=== PATIENT | male | born 1980 | race Caucasian/White ===

== ENCOUNTER 2016-10-18 20:00 | Emergency (ER) | payer OTHER ==
--- NOTE | 2016-10-18 22:38 | ED CLINICAL REPORT ---
Clinical Report - Physicians/Mid Levels [facility] [address] [place] [address] 10/18/2016 20:03 Patient: JED SOOD Time Seen: 21:12; initial patient contact, initial documentation, patient care assumed. Arrived- By private vehicle. Historian- patient. HISTORY OF PRESENT ILLNESS Chief Complaint: ABNORMAL GLUCOSE. This started yesterday and is still present. No loss of appetite or weight loss. Denies sleep problem. No decreased urine output. (having issues with increased thirst lately, just found out yesterday he was diabetic, given rx, no info really given on dm or diet or anything, has appt Tues with pcp over sugar, has appt Wed with surgeon over umbilical hernia, and has pending appt with senior escrow officer, sugar went down from dr office from 530 to 300 something, then, with dinner sugar was 600, pt had x2 burritos and beans for dinner). Similar symptoms previously: None. Recent medical care: The patient was seen recently in the office. ( went to pcp yesterday for stomach issues, dx with gastroenteritis and umbilical hernia, given cipro, blood work done and called back to office for sugar of 530 and dx of new dm). REVIEW OF SYSTEMS No fever, difficulty breathing, chest pain, abdominal pain or vomiting. No diarrhea or difficulty with urination. All systems otherwise negative, except as recorded above. PAST HISTORY See nurses notes. PROBLEMS: Hernia. Gastroesophageal Reflux Disease. Diabetes Mellitus. --20:17 Hussein Gillespie, Cam. SOCIAL HISTORY Heavy tobacco smoker. Alcohol use. Patient is a longstanding alcoholic. (sober 7 mos). No drug use. No recent travel. Is a local resident. He lives with spouse. FAMILY HISTORY Negative. ADDITIONAL NOTES The nursing notes have been reviewed with agreement regarding the chief complaint, HPI, ROS, PMH and patient medications and allergies. PHYSICAL EXAM Vital Signs: 10/18/2016 20:10 BP: 131/92. HR: 108. RR: 18. O2 saturation: 95%. Temp: 98.5 F. Pain level now: 7/10. Have been reviewed as abnormal and appear to be correct. Blood pressure normal. Tachycardic. Respiratory rate normal. Temperature normal. Oxygen saturation normal. Appearance: Alert. No acute distress. Eyes: Pupils equal, round and reactive to light. Eyes normal inspection. Neck: Normal inspection. Neck supple. CVS: Normal heart rate and rhythm. Heart sounds normal. Pulses normal. Respiratory: No respiratory distress. Breath sounds normal. Chest nontender. Abdomen: No visible injury. Soft and nontender. No mass. Small, tender mass present in the periumbilical area. No pulsatile mass present. No guarding present. Severely obese. Back: Normal inspection. Skin: Skin warm and dry. Normal skin color. No rash. Normal skin turgor. Extremities: Extremities exhibit normal ROM. No lower extremity edema. Neuro: Oriented X 3. No motor deficit. No sensory deficit. PROGRESS AND PROCEDURES Course of Care: 10/18/2016 21:37 BP: 143/92. HR: 104. RR: 20. O2 saturation: 99%. Pain level now: 0/10. Vital Signs: have been reviewed as normal and appear to be correct. Patient and spouse counseled in person regarding the patient's stable condition, test results and diagnosis. 22:25. Differential Diagnosis: Other possible considerations: dka, uncontrolled dm, viral illness, flu. Above considerations are based on history, physical exam and laboratory data. Differential diagnosis was discussed with patient and patient's family. Disposition: Discharged home in good and improved condition (22:38). Condition: good and stable. CLINICAL IMPRESSION New onset, poorly controlled type 2 diabetes with hyperglycemia. No diabetic ketoacidosis or retinopathy, hyperosmolar nonketotic state, coma or neuropathy. No dermopathy. INSTRUCTIONS Follow a diabetic diet. Warnings: GENERAL WARNINGS: Return or contact your physician immediately if your condition worsens or changes unexpectedly, if not improving as expected, or if other problems arise. Specifically return if problem worsens. Follow-up: Follow up with your doctor Thursday as scheduled even if well. Summary of care provided to patient and family. Understanding of the discharge instructions verbalized by patient and family. (Electronically signed by Griselda Oliveira A.R.N.P. 10/18/2016 23:30)
--- NOTE | 2016-10-18 22:38 | ED CLINICAL REPORT ---
Clinical Report - Physicians/Mid Levels [facility] [address] [place] [address] 10/18/2016 20:03 Patient: JED SOOD Time Seen: 21:12; initial patient contact, initial documentation, patient care assumed. Arrived- By private vehicle. Historian- patient. HISTORY OF PRESENT ILLNESS Chief Complaint: ABNORMAL GLUCOSE. This started yesterday and is still present. No loss of appetite or weight loss. Denies sleep problem. No decreased urine output. (having issues with increased thirst lately, just found out yesterday he was diabetic, given rx, no info really given on dm or diet or anything, has appt Tues with pcp over sugar, has appt Wed with surgeon over umbilical hernia, and has pending appt with sales representative graphic art, sugar went down from dr office from 530 to 300 something, then, with dinner sugar was 600, pt had x2 burritos and beans for dinner). Similar symptoms previously: None. Recent medical care: The patient was seen recently in the office. ( went to pcp yesterday for stomach issues, dx with gastroenteritis and umbilical hernia, given cipro, blood work done and called back to office for sugar of 530 and dx of new dm). REVIEW OF SYSTEMS No fever, difficulty breathing, chest pain, abdominal pain or vomiting. No diarrhea or difficulty with urination. All systems otherwise negative, except as recorded above. PAST HISTORY See nurses notes. PROBLEMS: Hernia. Gastroesophageal Reflux Disease. Diabetes Mellitus. --20:17 Hussein Gillespie, Cam. SOCIAL HISTORY Heavy tobacco smoker. Alcohol use. Patient is a longstanding alcoholic. (sober 7 mos). No drug use. No recent travel. Is a local resident. He lives with spouse. FAMILY HISTORY Negative. ADDITIONAL NOTES The nursing notes have been reviewed with agreement regarding the chief complaint, HPI, ROS, PMH and patient medications and allergies. PHYSICAL EXAM Vital Signs: 10/18/2016 20:10 BP: 131/92. HR: 108. RR: 18. O2 saturation: 95%. Temp: 98.5 F. Pain level now: 7/10. Have been reviewed as abnormal and appear to be correct. Blood pressure normal. Tachycardic. Respiratory rate normal. Temperature normal. Oxygen saturation normal. Appearance: Alert. No acute distress. Eyes: Pupils equal, round and reactive to light. Eyes normal inspection. Neck: Normal inspection. Neck supple. CVS: Normal heart rate and rhythm. Heart sounds normal. Pulses normal. Respiratory: No respiratory distress. Breath sounds normal. Chest nontender. Abdomen: No visible injury. Soft and nontender. No mass. Small, tender mass present in the periumbilical area. No pulsatile mass present. No guarding present. Severely obese. Back: Normal inspection. Skin: Skin warm and dry. Normal skin color. No rash. Normal skin turgor. Extremities: Extremities exhibit normal ROM. No lower extremity edema. Neuro: Oriented X 3. No motor deficit. No sensory deficit. PROGRESS AND PROCEDURES Course of Care: 10/18/2016 21:37 BP: 143/92. HR: 104. RR: 20. O2 saturation: 99%. Pain level now: 0/10. Vital Signs: have been reviewed as normal and appear to be correct. Patient and spouse counseled in person regarding the patient's stable condition, test results and diagnosis. 22:25. Differential Diagnosis: Other possible considerations: dka, uncontrolled dm, viral illness, flu. Above considerations are based on history, physical exam and laboratory data. Differential diagnosis was discussed with patient and patient's family. Disposition: Discharged home in good and improved condition (22:38). Condition: good and stable. CLINICAL IMPRESSION New onset, poorly controlled type 2 diabetes with hyperglycemia. No diabetic ketoacidosis or retinopathy, hyperosmolar nonketotic state, coma or neuropathy. No dermopathy. INSTRUCTIONS Follow a diabetic diet. Warnings: GENERAL WARNINGS: Return or contact your physician immediately if your condition worsens or changes unexpectedly, if not improving as expected, or if other problems arise. Specifically return if problem worsens. Follow-up: Follow up with your doctor Thursday as scheduled even if well. Summary of care provided to patient and family. Understanding of the discharge instructions verbalized by patient and family. (Electronically signed by Griselda Oliveira A.R.N.P. 10/18/2016 23:30)
--- NOTE | 2016-10-18 22:38 | ED ORDER SUMMARY ---
..... Patient: JED SOOD OrderSheet [facility] VisitID: [id number] [place] [address] 36y, M Registration Date/Time: 10/18/2016 ORDER SHEET Weight: 139.7 kg (stated) Allergies: Codeine GENERAL ORDERS: CBC w Diff Urgent (20:10/18/2016 HSoule per protocol) (Ack 20:25 LTapper) (22:35 JDeElena R.N.) CMP Urgent (20:10/18/2016 HSoule per protocol) (Ack 20:25 LTapper) (22:35 JDeElena R.N.) UA-Culture if indicated Urgent (20:10/18/2016 HSoule per protocol) (Ack 20:25 LTapper) POC Glucose (20:10/18/2016 HSoule per protocol) (20:21 HSoule) MEDICATION ORDERS: IV FLUIDS: IV Saline Lock (20:10/18/2016 HSoule per protocol) (20:21 HSoule) IV NS : initial bolus 1000 mL (1000 mL/hr), then 1000 mL/hr for X1 (NOW) (20:23 10/18/2016 HSoule per protocol) (Ack 20:23 HSoule) (20:27 HSoule) Insulin Reg IV 8 units (HIGH ALERT MEDICATION, NOW) (21:26 10/18/2016 HBivens A.R.N.P.) (Ack 21:29 HSoule) (21:37 HSoule) ORDER SHEET NOTES: [Electronically signed by Griselda Oliveira A.R.N.P. (23:30 10/18/2016)] [Electronically signed by Sobeida Carl (00:10/19/2016)] [Electronically locked/signed by Sobeida Carl (00:10/19/2016)]
--- NOTE | 2016-10-18 22:38 | ED NURSING NOTES ---
Clinical Report - Nurses [facility] [address] [place] [address] 10/18/2016 20:03 Patient: JED SOOD TRIAGE Triage time 20:12. Chief Complaint: HEADACHE, NAUSEA and VOMITING (Diagnosed with Diabetes yesterday; started on Glimeperide. Instructed to take BSG AM, PM, and before meals. BSG tonight before dinner 600 mg/dl checked with his home glucometer. C/O of headache, dry mouth, nausea. Spouse states he has a "gastro infection" and is supposed to get antibiotics on Thursday. Surgery appointment on Thursday for hernia repair.). Alert. No acute distress. SEPSIS SCREEN: Sepsis Screen: negative. Negative (no infection suspected/documented). --20:19 Hussein Gillespie R.N. 20:10 10/18/16. BP: 131/92 (large adult cuff) taken on the right arm, via an automated monitor, while lying. HR: 108 (tachycardic). RR: 18 (regular, unlabored and normal). O2 saturation: 95% on room air. Temp: 98.5 F (oral). Pain level now: 04/13. --20:19 Hussein Gillespie R.N. Weight: 139.7 kg stated. Height/Length: 67 inches Per Patient. BMI: 48.3. --20:19 Hussein Gillespie R.N. Medications Glimepiride Oral (Tablet 2 mg) 1 tablet (Initially directed to take 1 pill with breakfast then tomorrow begin 1 pill with breakfast and dinner and then the next day with all meals.). --20:15 Hussein Gillespie R.N. Prochlorperazine Maleate Oral (Tablet 10 mg) 1 tablet, 3x a day as needed. --20:16 Hussein Gillespie R.N. Ranitidine HCl Oral (Tablet 150 mg) 1 tablet, 2x a day. --20:16 Hussein Gillespie R.N. Medication/allergy information source: the patient's pill bottles. --20:19 Hussein Gillespie R.N. Allergies Codeine. --20:16 Hussein Gillespie R.N. History Arrived by private vehicle. Historian: patient. Accompanied by family. Primary physician ([facility]). This started today. He has had intermittent abdominal pain (Hernia; surgery for repair scheduled.). The pain is described as located in the upper abdomen. No fever, chest pain or difficulty breathing. Denies muscle aches. Treatment CAP SEWER: None. PAST MEDICAL HX: Immunizations: up-to-date. SOCIAL HX: Current every day heavy tobacco smoker (cigarette)- less than 1 pack per day. Alcohol use. Patient is a recovering alcoholic. (Last drink 7 months ago.). No drug use. He has not traveled outside the [place] The patient was not exposed to MRSA. ABUSE ASSESSMENT: Abuse assessment: The patient was asked "Do you feel safe in your home?" and "Has anyone hurt you or threatened to hurt you?". No report of abuse. SELF HARM ASSESSMENT: A self harm assessment was performed. The patient answered "no" to the question "Do you have thoughts of harming or killing yourself?" and "Have you recently had thoughts about harming or killing others?". FALL RISK ASSESSMENT: Fall risk assessment completed. No fall risk identified. NUTRITIONAL RISK ASSESSMENT: The nutritional risk assessment revealed no deficiencies. FUNCTIONAL ASSESSMENT: Functional assessment: no impairments noted. LEARNING NEEDS ASSESSMENT: The learning needs assessment revealed no barriers. SKIN INTEGRITY ASSESSMENT: Skin integrity risk assessment completed. No skin integrity risk identified. --20:19 Hussein Gillespie R.N. PROBLEMS: Hernia. Gastroesophageal Reflux Disease. Diabetes Mellitus. --20:17 Hussein Gillespie R.N. Assessment GENERAL / NEURO / PSYCH: Alert. Oriented X 4. Appears in no acute distress. Marlin Coma Scale: 15- eyes open spontaneously (4); best verbal response- oriented x 4 (5); best motor response- obeys commands (6). Patient appears calm and cooperative. RESPIRATORY: Respirations not labored. SKIN: Skin is warm and dry. --20:19 Hussein Gillespie R.N. Interventions ID and allergy band on patient. Finger stick glucose: 361 mg/dl; ordered; performed by nurse; result shown to the ED physician. To treatment room. --20:19 Hussein Gillespie R.N. NURSING PROGRESS NOTES 20:10/18/2016 Site #1 started via IV in the left antecubital space with an 20g angiocath, with aseptic technique and good blood return; one attempt. Blood drawn: rainbow set. Labeled in the presence of the patient and sent to the lab. Saline lock flushed with 10 mL saline. --20:21 Sobeida Carl The initial plan of care for this patient has been created This plan of care was discussed with the patient. Patient gowned. Reassurance given to the patient. Two patient identifiers checked. Call light placed in reach. Side rails up x 1. Bed placed in lowest position. Brakes of bed on. Patient ready for evaluation- ED physician and CRANK HAND notified. --20:21 Hussein Gillespie R.N. Finger stick glucose: 361 mg/dL; performed by nurse; result shown to the ED physician. --20:22 Sobeida Carl 20:27 10/18/2016 Started bag #1 1000 mL IV Fluids IV NS (Saline); at 1000 mL/hr over 1 hour(s) via site #1. Allergies verified and confirmed 5 rights. IV patency established. IV site checked: no pain, redness, or swelling. IV flushed thoroughly pre- and post-medication administration. --20:27 Sobeida Carl Patient ID band checked for patient name and birthdate: patient confirmed. Instructions provided to collect clean catch urine and patient verbalized understanding. Clean catch urine collected with return of yellow-colored clear urine; sample sent to lab for urinalysis. Specimen labeled in the presence of the patient. --20:58 Sobeida Carl 21:37 10/18/2016 Insulin REG IVP 8 unit given over 1 minute(s) via site #1. Allergies verified and confirmed 5 rights. IV patency established. IV site checked: no pain, redness, or swelling. IV flushed thoroughly pre- and post-medication administration. IVP given by RN (Dose verified by Rakan Quach RN). --21:37 Sobeida Carl 21:37 10/18/16. BP: 143/92. HR: 104. RR: 20. O2 saturation: 99% on room air. Pain level now: 0/10. --21:38 Sobeida Carl ( Patient has no complaints at this time). --21:38 Sobeida Carl 21:39 10/18/2016 IV Fluids IV NS Discontinued: bag #1 completed. Total amount infused: 1000 mL. IV patency established. IV site checked: no pain, redness, or swelling. IV flushed thoroughly. --21:39 Sobeida Carl Finger stick glucose: 235 mg/dL; performed by nurse; result shown to the CRANK HAND. --22:11 Sobeida Carl. DISPOSITION / DISCHARGE 22:48 10/18/16. BP: 138/64. HR: 105. RR: 20. O2 saturation: 98% on room air. Temp: 98 F (oral). Pain level now: 0/10. --22:51 Sobeida Carl 22:46 10/18/2016 Site #1 removed upon discharge. Catheter intact. Bandaid applied. --22:51 Sobeida Carl 22:51 10/18/16. Condition at departure: improved and stable. No learning barriers present. Discharge instructions provided and reviewed with the patient, spouse and family. Reviewed diabetic diet and need for increased fluid intake. Patient and spouse verbalized understanding. Written instructions provided in Wolof. ( Follow up with PCP as scheduled on Thursday. Return if symptoms worsen. Reviewed when and how to check sugars. Reviewed Glycemic Index and appropriate food choices. Patient and family felt better after receiving teaching today from provider and RN). The patient was discharged by the nurse practitioner. He was discharged home and accompanied by spouse. He left the Emergency Department ambulatory and via private vehicle. Spouse driving. --22:51 Sobeida Carl. Locked/Released at 10/19/2016 0:21 by Sobeida Carl,
--- NOTE | 2016-10-18 22:38 | ED ORDER SUMMARY ---
..... Patient: JED OSOD OrderSheet [facility] VisitID: [id number] [place] [address] 36y, M Registration Date/Time: 10/18/2016 ORDER SHEET Weight: 139.7 kg (stated) Allergies: Codeine GENERAL ORDERS: CBC w Diff Urgent (20:10/18/2016 HSoule per protocol) (Ack 20:25 LTapper) (22:35 JDeElena R.N.) CMP Urgent (20:10/18/2016 HSoule per protocol) (Ack 20:25 LTapper) (22:35 JDeElena R.N.) UA-Culture if indicated Urgent (20:10/18/2016 HSoule per protocol) (Ack 20:25 LTapper) POC Glucose (20:10/18/2016 HSoule per protocol) (20:21 HSoule) MEDICATION ORDERS: IV FLUIDS: IV Saline Lock (20:10/18/2016 HSoule per protocol) (20:21 HSoule) IV NS : initial bolus 1000 mL (1000 mL/hr), then 1000 mL/hr for X1 (NOW) (20:23 10/18/2016 HSoule per protocol) (Ack 20:23 HSoule) (20:27 HSoule) Insulin Reg IV 8 units (HIGH ALERT MEDICATION, NOW) (21:26 10/18/2016 HBivens A.R.N.P.) (Ack 21:29 HSoule) (21:37 HSoule) ORDER SHEET NOTES: [Electronically signed by Griselda Oliveira A.R.N.P. (23:30 10/18/2016)] [Electronically signed by Sobeida Carl (00:10/19/2016)] [Electronically locked/signed by Sobeida Carl (00:10/19/2016)]
--- NOTE | 2016-10-18 22:38 | ED NURSING NOTES ---
Clinical Report - Nurses [facility] [address] [place] [address] 10/18/2016 20:03 Patient: JED SOOD TRIAGE Triage time 20:12. Chief Complaint: HEADACHE, NAUSEA and VOMITING (Diagnosed with Diabetes yesterday; started on Glimeperide. Instructed to take BSG AM, PM, and before meals. BSG tonight before dinner 600 mg/dl checked with his home glucometer. C/O of headache, dry mouth, nausea. Spouse states he has a "gastro infection" and is supposed to get antibiotics on Thursday. Surgery appointment on Thursday for hernia repair.). Alert. No acute distress. SEPSIS SCREEN: Sepsis Screen: negative. Negative (no infection suspected/documented). --20:19 Hussein Gillespie R.N. 20:10 10/18/16. BP: 131/92 (large adult cuff) taken on the right arm, via an automated monitor, while lying. HR: 108 (tachycardic). RR: 18 (regular, unlabored and normal). O2 saturation: 95% on room air. Temp: 98.5 F (oral). Pain level now: 04/13. --20:19 Hussein Gillespie R.N. Weight: 139.7 kg stated. Height/Length: 67 inches Per Patient. BMI: 48.3. --20:19 Hussein Gillespie R.N. Medications Glimepiride Oral (Tablet 2 mg) 1 tablet (Initially directed to take 1 pill with breakfast then tomorrow begin 1 pill with breakfast and dinner and then the next day with all meals.). --20:15 Hussein Gillespie R.N. Prochlorperazine Maleate Oral (Tablet 10 mg) 1 tablet, 3x a day as needed. --20:16 Hussein Gillespie R.N. Ranitidine HCl Oral (Tablet 150 mg) 1 tablet, 2x a day. --20:16 Hussein Gillespie R.N. Medication/allergy information source: the patient's pill bottles. --20:19 Hussein Gillespie R.N. Allergies Codeine. --20:16 Hussein Gillespie R.N. History Arrived by private vehicle. Historian: patient. Accompanied by family. Primary physician ([facility]). This started today. He has had intermittent abdominal pain (Hernia; surgery for repair scheduled.). The pain is described as located in the upper abdomen. No fever, chest pain or difficulty breathing. Denies muscle aches. Treatment METAL PRECISION MACHINE ASSEMBLER: None. PAST MEDICAL HX: Immunizations: up-to-date. SOCIAL HX: Current every day heavy tobacco smoker (cigarette)- less than 1 pack per day. Alcohol use. Patient is a recovering alcoholic. (Last drink 7 months ago.). No drug use. He has not traveled outside the [place] The patient was not exposed to MRSA. ABUSE ASSESSMENT: Abuse assessment: The patient was asked "Do you feel safe in your home?" and "Has anyone hurt you or threatened to hurt you?". No report of abuse. SELF HARM ASSESSMENT: A self harm assessment was performed. The patient answered "no" to the question "Do you have thoughts of harming or killing yourself?" and "Have you recently had thoughts about harming or killing others?". FALL RISK ASSESSMENT: Fall risk assessment completed. No fall risk identified. NUTRITIONAL RISK ASSESSMENT: The nutritional risk assessment revealed no deficiencies. FUNCTIONAL ASSESSMENT: Functional assessment: no impairments noted. LEARNING NEEDS ASSESSMENT: The learning needs assessment revealed no barriers. SKIN INTEGRITY ASSESSMENT: Skin integrity risk assessment completed. No skin integrity risk identified. --20:19 Hussein Gillespie R.N. PROBLEMS: Hernia. Gastroesophageal Reflux Disease. Diabetes Mellitus. --20:17 Hussein Gillespie R.N. Assessment GENERAL / NEURO / PSYCH: Alert. Oriented X 4. Appears in no acute distress. Marlin Coma Scale: 15- eyes open spontaneously (4); best verbal response- oriented x 4 (5); best motor response- obeys commands (6). Patient appears calm and cooperative. RESPIRATORY: Respirations not labored. SKIN: Skin is warm and dry. --20:19 Hussein Gillespie R.N. Interventions ID and allergy band on patient. Finger stick glucose: 361 mg/dl; ordered; performed by nurse; result shown to the ED physician. To treatment room. --20:19 Hussein Gillespie R.N. NURSING PROGRESS NOTES 20:10/18/2016 Site #1 started via IV in the left antecubital space with an 20g angiocath, with aseptic technique and good blood return; one attempt. Blood drawn: rainbow set. Labeled in the presence of the patient and sent to the lab. Saline lock flushed with 10 mL saline. --20:21 Sobeida Carl The initial plan of care for this patient has been created This plan of care was discussed with the patient. Patient gowned. Reassurance given to the patient. Two patient identifiers checked. Call light placed in reach. Side rails up x 1. Bed placed in lowest position. Brakes of bed on. Patient ready for evaluation- ED physician and HOUSEHOLD APPLIANCES SALESPERSON notified. --20:21 Hussein Gillespie R.N. Finger stick glucose: 361 mg/dL; performed by nurse; result shown to the ED physician. --20:22 Sobeida Carl 20:27 10/18/2016 Started bag #1 1000 mL IV Fluids IV NS (Saline); at 1000 mL/hr over 1 hour(s) via site #1. Allergies verified and confirmed 5 rights. IV patency established. IV site checked: no pain, redness, or swelling. IV flushed thoroughly pre- and post-medication administration. --20:27 Sobeida Carl Patient ID band checked for patient name and birthdate: patient confirmed. Instructions provided to collect clean catch urine and patient verbalized understanding. Clean catch urine collected with return of yellow-colored clear urine; sample sent to lab for urinalysis. Specimen labeled in the presence of the patient. --20:58 Sobeida Carl 21:37 10/18/2016 Insulin REG IVP 8 unit given over 1 minute(s) via site #1. Allergies verified and confirmed 5 rights. IV patency established. IV site checked: no pain, redness, or swelling. IV flushed thoroughly pre- and post-medication administration. IVP given by RN (Dose verified by Rakan Quach RN). --21:37 Sobeida Carl 21:37 10/18/16. BP: 143/92. HR: 104. RR: 20. O2 saturation: 99% on room air. Pain level now: 0/10. --21:38 Sobeida Carl ( Patient has no complaints at this time). --21:38 Sobeida Carl 21:39 10/18/2016 IV Fluids IV NS Discontinued: bag #1 completed. Total amount infused: 1000 mL. IV patency established. IV site checked: no pain, redness, or swelling. IV flushed thoroughly. --21:39 Sobeida Carl Finger stick glucose: 235 mg/dL; performed by nurse; result shown to the HOUSEHOLD APPLIANCES SALESPERSON. --22:11 Sobeida Carl. DISPOSITION / DISCHARGE 22:48 10/18/16. BP: 138/64. HR: 105. RR: 20. O2 saturation: 98% on room air. Temp: 98 F (oral). Pain level now: 0/10. --22:51 Sobeida Carl 22:46 10/18/2016 Site #1 removed upon discharge. Catheter intact. Bandaid applied. --22:51 Sobeida Carl 22:51 10/18/16. Condition at departure: improved and stable. No learning barriers present. Discharge instructions provided and reviewed with the patient, spouse and family. Reviewed diabetic diet and need for increased fluid intake. Patient and spouse verbalized understanding. Written instructions provided in Kinyarwanda. ( Follow up with PCP as scheduled on Thursday. Return if symptoms worsen. Reviewed when and how to check sugars. Reviewed Glycemic Index and appropriate food choices. Patient and family felt better after receiving teaching today from provider and RN). The patient was discharged by the nurse practitioner. He was discharged home and accompanied by spouse. He left the Emergency Department ambulatory and via private vehicle. Spouse driving. --22:51 Sobeida Carl. Locked/Released at 10/19/2016 0:21 by Sobeida Carl,
--- NOTE | 2016-10-19 00:23 | ED MAR SUMMARY ---
..... Medication Administration Record [facility] [address] [place] [address] Patient: JED SOOD Visit ID: [id number] 36y, M Weight: 139.7 kg Height/Length: 67 in BMI: 48.3 ALLERGIES: Codeine Start 20:27 10/18/2016 Sobeida Carl,, Stop 21:39 10/18/2016 Sobeida Carl, Medication Administered: IV NS (SALINE), Dose: IV Fluids over 1 hour(s), Rate: 1000 mL/hr, Dispensed: 1000 mL bag, Site: #1 left AC. Medication Ordered: IV NS : initial bolus 1000 mL (1000 mL/hr), then 1000 mL/hr for X1 (NOW). Given 21:37 10/18/2016 Sobeida Carl, Medication Administered: INSULIN REG [IVP], Dose: 8 unit IVP over 1 minute(s), Site: #1 left AC. Medication Ordered: Insulin Reg IV 8 units (HIGH ALERT MEDICATION, NOW).
--- NOTE | 2016-10-19 00:23 | ED MAR SUMMARY ---
..... Medication Administration Record [facility] [address] [place] [address] Patient: JED SOOD Visit ID: [id number] 36y, M Weight: 139.7 kg Height/Length: 67 in BMI: 48.3 ALLERGIES: Codeine Start 20:27 10/18/2016 Sobeida Carl,, Stop 21:39 10/18/2016 Sobeida Carl, Medication Administered: IV NS (SALINE), Dose: IV Fluids over 1 hour(s), Rate: 1000 mL/hr, Dispensed: 1000 mL bag, Site: #1 left AC. Medication Ordered: IV NS : initial bolus 1000 mL (1000 mL/hr), then 1000 mL/hr for X1 (NOW). Given 21:37 10/18/2016 Sobeida Carl, Medication Administered: INSULIN REG [IVP], Dose: 8 unit IVP over 1 minute(s), Site: #1 left AC. Medication Ordered: Insulin Reg IV 8 units (HIGH ALERT MEDICATION, NOW).
--- NOTE | 2016-10-19 00:23 | ED MED RECONCILIATION SUMMARY ---
Patient: JED SOOD Medication Reconciliation Report [facility] VisitID: [id number] [address] [place] [address] 36y, M Registration Date/Time: 10/18/2016 Weight: 139.7 kg Height/Length: 67 in. BMI: 48.3 ALLERGIES: Codeine The patient's Home Medications are listed below: THE FOLLOWING MEDICATIONS NEED TO BE RECONCILED: Glimepiride Oral (2 mg) 1 tablet, Initially directed to take 1 pill with breakfast then tomorrow begin 1 pill with breakfast and dinner and then the next day with all meals. Prochlorperazine Maleate Oral (10 mg) 1 tablet, 3x a day Ranitidine HCl Oral (150 mg) 1 tablet, 2x a day The source(s) of the original Home Medication information: patient's pill bottles The following Medications were given to the patient in the Emergency Department: IV NS IV Fluids bolus 0, then 1000 mL/hr, administered: 10/18/2016 8:27:00 PM Insulin REG [IVP] IVP 8 unit, administered: 10/18/2016 9:37:00 PM The following Medications were prescribed to the patient: None.
--- NOTE | 2016-10-19 00:23 | ED MED RECONCILIATION SUMMARY ---
Patient: JED SOOD Medication Reconciliation Report [facility] VisitID: [id number] [address] [place] [address] 36y, M Registration Date/Time: 10/18/2016 Weight: 139.7 kg Height/Length: 67 in. BMI: 48.3 ALLERGIES: Codeine The patient's Home Medications are listed below: THE FOLLOWING MEDICATIONS NEED TO BE RECONCILED: Glimepiride Oral (2 mg) 1 tablet, Initially directed to take 1 pill with breakfast then tomorrow begin 1 pill with breakfast and dinner and then the next day with all meals. Prochlorperazine Maleate Oral (10 mg) 1 tablet, 3x a day Ranitidine HCl Oral (150 mg) 1 tablet, 2x a day The source(s) of the original Home Medication information: patient's pill bottles The following Medications were given to the patient in the Emergency Department: IV NS IV Fluids bolus 0, then 1000 mL/hr, administered: 10/18/2016 8:27:00 PM Insulin REG [IVP] IVP 8 unit, administered: 10/18/2016 9:37:00 PM The following Medications were prescribed to the patient: None.
--- NOTE | 2016-10-19 00:23 | ED DISCHARGE INSTRUCTIONS ---
Patient: JED SOOD General Instructions [facility] VisitID: [id number] [place] [address] 36y, M Registration Date/Time: 10/18/2016 New onset, poorly controlled type 2 diabetes with hyperglycemia. No diabetic ketoacidosis or retinopathy, hyperosmolar nonketotic state, coma or neuropathy. No dermopathy. INSTRUCTIONS Follow a diabetic diet. Warnings: GENERAL WARNINGS: Return or contact your physician immediately if your condition worsens or changes unexpectedly, if not improving as expected, or if other problems arise. Specifically return if problem worsens. Follow-up: Follow up with your doctor Thursday as scheduled even if well. Summary of care provided to patient and family. Understanding of the discharge instructions verbalized by patient and family. ADDITIONAL INFORMATION Diabetes with High Blood Sugar You have been treated for high blood sugar (hyperglycemia). This may be becauseof an infection or other illness;eating too many sweets or starches ; not taking enough insulin. Home care High blood sugar may cause symptoms that you can learn to recognize, such as these: If you feel like your blood sugar may be too high, measure it using a blood or urine test. If it is above your usual range, use the "sliding scale"rRegular insulin dose your doctor gave you to correct this. If no "sliding scale" orders were given, contact your doctor for further advice. If your blood sugar is over 300, and you can't reach your doctor, go to the hospital emergency room. Monitor and write down your blood sugars - and insulin dose, if you take insulin - atleast twice a day. Do this before breakfast and before dinner. Do this for the next 3 to 5 days. Follow-up care [facility] the next week to review your blood sugar records. You will find out if you need to adjust your dose of insulin or other medicine for blood sugar. When to seek medical care Get prompt medical attention if either of these occur: High blood sugar.Symptoms are frequent urination, feeling dizzy, thirst, headache, nausea or vomiting, abdominal pain, and drowsiness or loss of consciousness. Low blood sugar. Symptoms are fatigue, headache, shakes, excess sweating, hunger, anxiety, reduced vision, drowsiness, weakness, confusion or loss of consciousness, and seizure. Diabetes (General Information) Cells of the body need glucose (sugar) for fuel. Insulin is the hormone in the body that lets glucose move from the blood into the cells. Diabetes is a chronic health condition where the body is not able to produce enough insulin, or does not respond well to its own insulin. Because the glucose in the blood cannot get into the cells, it builds up in the blood causing high blood sugar (hyperglycemia). Your actual blood sugar level is a result of the balance between several factors. These include what kind of food you eat and how much of it you eat, how much exercise you get, and the amount of insulin present in your body. Eating too much of the wrong kinds of food or not taking diabetes medicine on time can cause high blood sugar. Infections can cause high blood sugar even if you are taking medicines correctly. Missing meals, not eating enough food, or taking too much diabetes medicine can lead to low blood sugar. Untreated over long periods of time, diabetes can cause serious problems such as heart disease, stroke, kidney failure, blindness, nerve pain or loss of feeling in the legs and feet, and gangrene of the feet. With good treatment keeping your blood sugar under control, you can prevent or delay the complications of diabetes. Normal blood sugar levels are 70-130 one to two hours before a meal and not more than 180 two hours after a meal. Home Care: Follow your prescribed diabetic diet and take insulin or oral diabetic medicine exactly as ordered. Monitor blood sugars as advised. Keep a log of your results. This will help your doctor adjust your medicines to keep your blood sugar under control. Try to achieve your ideal weight. Proper diet and exercise can reduce or eliminate the need to take diabetes medicine. Avoid tobacco smoking, which worsens the effect of diabetes on your circulation. The risk of a heart attack in a diabetic is 15 times more likely if you smoke. Pay attention to good foot care. If you have lost feeling in your feet you may not notice an injury or infection. Check your feet and between your toes at least once a week. Wear a medical alert bracelet or carry a card in your wallet explaining that you are diabetic. In the event that you become very ill and are unable to give this information, it will help medical personnel provide proper care. If you become sick with a cold, the flu, or an infection (viral or bacterial), please do the following: Review your diabetes sick plan and contact your physician as instructed. You may have been advised to call the doctor immediately if: Your blood sugar is above 240 while taking your diabetes medication Your urine ketone levels are above normal or showing high levels of ketones You have been vomiting more than 6 hours You experience difficulty to trouble breathing You develop a high fever or you have had a fever for a couple of days and you aren't getting better You become light-headed and more sleepy than usual Keep taking your oral diabetes medicine (pills) even if you have been vomiting and feeling sick. Contact your doctor immediately for advice because you may need insulin to lower your blood sugar until you recover from your illness. Keep taking your insulin, even if you have been vomiting and feeling sick. Call your doctor immediately and ask if a temporary adjustment of your insulin dose is needed based on your blood glucose (sugar) results. Check your blood sugar every 2 to 4 hours, or at least 4 times a day. Check your keytones often. If you are vomiting and having diarrhea, monitor them more frequently. Don't skip meals. Try to eat small meals on a regular schedule, even if you do not have an appetite. Drink water or other calorie-free, non-caffeinated liquids to stay hydrated. If you are nauseated or vomiting, drink small amounts (sips, a teaspoon) every 5 minutes. To prevent dehydration, try to drink a cup or 8 ounces of fluids every hour while you are awake. Always carry a source of fast-acting sugar with you in case you get symptoms of low blood sugar (below 70). At the first sign of low blood sugar, eat or drink 15 to 20 grams of fast-acting sugar to raise your blood sugar. Examples include: 3 to 4 glucose tablets (found at most drugstores) 4 ounces (1/2 cup) of regular (not diet) softdrinks 4 ounces (1/2 cup) of any fruit juice 8 ounces (1 cup) of milk 5 to 6 pieces of hard candy 1 tablespoon of honey Check your blood sugar 15 minutes after treating yourself. If it is still low (below 70), take another 15 to 20 grams of fast-acting sugar. Test again in 15 minutes. If it returns to normal (70 or above), eat a snack or meal to keep your blood sugar in a safe range. If it remains low, call your doctor or go to an emergency room. Follow Up with your doctor as advised by our staff. For more information, contact the [employer]. www.diabetes.org or 617-192-3199. Get Prompt Medical Attention if any of the following occur: HIGH BLOOD SUGAR: frequent urination, dizziness, drowsiness, thirst, headache, nausea or vomiting, abdominal pain, vision changes, fast breathing, confusion or loss of consciousness LOW BLOOD SUGAR: fatigue, headache, shakes, excess sweating, hunger, feeling anxious or restless, vision changes, drowsiness, weakness, confusion or loss of consciousness Chest pain or shortness of breath Dizziness or fainting Weakness of an arm or leg or one side of the face Trouble with speech or vision You have been given the following additional information: Diabetic Hyperglycemia Diabetes, General Info (Electronically signed by Griselda Oliveira A.R.N.P. 10/18/2016 23:30)
== END 2016-10-18 22:50 | disposition home or self-care (01) ==
LOC: ED SRH 20:00
DX: E11.65 Type 2 diabetes mellitus with hyperglycemia (principal); K21.9 Gastro-esophageal reflux disease without esophagitis; F17.210 Nicotine dependence, cigarettes, uncomplicated; Z88.5 Allergy status to narcotic agent
CPT/HCPCS: 90004; 90098; 90100; 95059